=== PATIENT | female | born 1990 | race Caucasian/White ===

== ENCOUNTER 2018-11-23 02:52 | Inpatient (IN) ==
[2018-11-23 04:23] LABS: Hematocrit (blood only) 39.4 % (37-47); Hemoglobin 13.6 g/dL (12.0-16.0); Mean Corpuscular Volume 86.6 fL (80-100); Mean Platelet Volume 13.3 fL (7.4-10.4); Platelet Count 165 K/uL (130-400); RDW Coefficient of Variation 15.3 % (11.5-14.5); RDW Standard Deviation 48.5 fL (36.4-46.3); Red Blood Count 4.55 M/uL (4.2-5.4); White Blood Count 11.53 K/uL (4.8-10.8)
[2018-11-23 04:30] LABS: Mean Corpuscular Hgb Conc 34.5 g/dL (32-36)
[2018-11-23] MEDS ORDERED: OXYTOCIN 30 UNITS/500 ML BAG IV PRN ×2 (05:44→15:30)
--- NOTE | 2018-11-23 05:53 | History & Physical Report ---
Date of Service November 23, 2018 Assessment & Plan (1) Supervision of normal first : - tracing Cat I - ROM for 6 hours - no active ctx's - will start pitocin per induction protocol - anticipate History of Present Illness Chief Complaint: ROM Primary Care Provider: [facility] PCP The patient is a 28-year-old 1 para 0 with an EDC of 25 November who was admitted at 39+ weeks gestational age with spontaneous rupture membranes. Patient states that the membranes ruptured at 2330 hrs. on 22 November. She describes the fluid as clear, with no real contractions. The patient has had a benign course. Her blood type is O+ antibody negative rubella immune, hepatitis B negative, the normal 1 hour Glucola x2, negative beta strep culture, patient declined genetic screening, patient declined quad screen. Allergies Allergy/AdvReac Type Severity Reaction Status Date / Time No Known Allergies Allergy Verified 11/22/18 09:57 Home Medications Home Medications Medication Instructions Recorded Confirmed Type calcium carbonate 500 mg PO DAILY 11/08/18 11/23/18 History 1 tab PO DAILY 11/08/18 11/23/18 History vitamin,calcium,pvyttlzv-rwct-povlv acid tablet Patient History Social History Preferred Language: Nepalese Communication Ability: Effective Plastic Manager Required: No Beliefs That Will Affect Care: None marital status: Current Living Situation: Spouse Other Information That Helps Us Care for You: No Feels Safe at Home: Yes Safety Concerns: Feels Safe At This Time Smoking Status: Never smoker Hx Alcohol Use: No Hx Substance Use: No Physical Exam Constitutional: WD/WN, vitals as above Respiratory: Auscultation: lungs clear to auscultation bilaterally Cardiovascular: RRR, no murmur, no edema Extremities: no calf tenderness Gastrointestinal (Abdomen): Gravid, vertex, (+)FHT's, EFW 8 lbs Genitourinary: Cervix: 3/80/-1 Results & Data Vital Signs (Past 12 Hours) Vital Signs Temp Pulse Resp BP 11/23/18 05:30 97.7 F 18 11/23/18 03:48 107 H 144/89 H 11/23/18 03:45 92 H 143/90 H 11/23/18 03:34 101 H 145/95 H 11/23/18 03:20 97.7 F 18
[2018-11-23] MEDS: LACTATED RINGER'S 1,000 ML IV PRN ×2 (06:00→09:46)
[2018-11-23] MEDS ORDERED: BUPIVACAINE 0.25% 30 ML VIAL ONE (09:21)
[2018-11-23] MEDS ORDERED: ePHEDrine sulfate 50 MG/ML AMP ONE (09:21)
[2018-11-23] MEDS ORDERED: fentaNYL 2MCG/ML ROPIV 1.25MG/ML 100 ML BAG EPI ONE (09:22)
[2018-11-23] MEDS ORDERED: fentaNYL citrate 100 MCG/2 ML VIAL ONE (09:22)
[2018-11-23] MEDS ORDERED: ePHEDrine sulfate 50 MG/ML AMP IV PRN (09:28)
[2018-11-23] MEDS ORDERED: DiphenhydrAMINE HCL 50 MG/ML VIAL IV PRN (09:28)
[2018-11-23] MEDS ORDERED: NALBUPHINE HCL INJ 10 MG/ML AMP IV PRN (09:28)
[2018-11-23] MEDS ORDERED: NALOXONE HCL 0.4 MG/1 ML VIAL/CARP IV PRN (09:28)
[2018-11-23] MEDS ORDERED: NALOXONE HCL 1 MG in SODIUM CHLORIDE 0.9% 1000ML 1,000 ML IV PRN (09:28)
[2018-11-23] MEDS ORDERED: fentaNYL 2MCG/ML ROPIV 1.25MG/ML 100 ML BAG EPI PRN (09:28)
[2018-11-23] MEDS ORDERED: ONDANSETRON INJ 2 MG/ML 2 ML VIAL IV PRN (09:28)
--- NOTE | 2018-11-23 09:30 | Anesthesiology Consultation ---
Date of Service November 23, 2018 Assessment & Plan (1) Encounter for pre-operative examination: Chart Review Chart Review: Patient NOT seen in Pre Admission Testing and Acceptable Risk for Labor Epidural Consults Requested none History Height/Weight Height: 5 ft 7 in Weight: 105.233 kg Allergies Allergy/AdvReac Type Severity Reaction Status Date / Time No Known Allergies Allergy Verified 11/22/18 09:57 Medications Home Medications Medication Instructions Recorded Confirmed Last Taken calcium carbonate 500 mg PO DAILY 11/08/18 11/23/18 11/22/18 08:00 1 tab PO DAILY 11/08/18 11/23/18 11/22/18 08:00 vitamin,calcium,yeebmpcm-qzbt-wbwsk acid tablet Active Medications Generic Name Dose Route Start Last Admin Trade Name Freq PRN Reason Stop Dose Admin Lactated Ringer's 1,000 mls @ 125 mls/hr 11/23/18 03:59 11/23/18 09:46 Lr IV 11/25/18 03:58 999 mls/hr .Q8H PRN Administration L&D Protocol Protocol Oxytocin 30 units in 500 mls @ 11 mls/hr 11/23/18 05:44 11/23/18 09:50 Pitocin IV 11/25/18 05:43 0.78 units/hr .Q24H PRN 13 mls/hr Labor Induction/Augmentation Titration Protocol 0.66 UNITS/HR Past Medical History Medical History LGSIL on Pap smear of cervix (Acute) History of varicella Hx of migraines Exercise / Class Metabolic Activity II 4-5 Yardwork/Stairs/Walk up hill Past Family History Family History Grandmother (Maternal) Kidney disease Father Thyroid disease Past Surgical History Surgical History S/P LASIK surgery S/P wisdom tooth extraction Past Anesthesia History No Hx of Anesthesia Complications and No Family Hx of Anesthesia Complications History of PONV No Hx of PONV and No Hx of Motion Sickness Social History Smoking Status: Never smoker Hx Alcohol Use: No Hx Substance Use: No Physical Exam Vital Signs Last Vital Signs Temp 36.6 C 11/23/18 09:30 Pulse 89 08/22/19 09:51 Resp 18 11/23/18 07:21 BP 134/80 11/23/18 08:41 Pulse Ox 94 11/23/18 09:51 Testing Laboratory Results 11/23/18 04:07
[2018-11-23] MEDS ORDERED: BISACODYL 10 MG SUPP PR PRN (15:30)
[2018-11-23] MEDS ORDERED: DIPHTHERIA/TETANUS/PERTUSSIS 0.5 ML SYR/VIAL IM ONE (15:30)
[2018-11-23] MEDS ORDERED: SUPERCREAM 0.870% 15 GM JAR EXT PRN (15:30)
[2018-11-23] MEDS ORDERED: HYDROCORTISONE ACETATE 25 MG SUPP PR PRN (15:30)
[2018-11-23] MEDS ORDERED: IBUPROFEN 600 MG TAB PO PRN (15:30)
[2018-11-23] MEDS ORDERED: BENZOCAINE 20% AER SPR 82.5 GM CAN EXT PRN (15:30)
[2018-11-23] MEDS ORDERED: OXYCODONE/ACETAMINOPHEN 5mg/325mg TAB PO PRN (15:30)
[2018-11-23] MEDS ORDERED: ACETAMINOPHEN 325 MG TAB PO PRN (15:30)
--- NOTE | 2018-11-23 17:12 | Anesthesia Procedure Note ---
Date of Service November 23, 2018 Anesthesia Post Epidural Note Vital Signs Vital Signs: Temp Pulse Resp BP Pulse Ox 36.5 C 91 H 18 130/85 96 11/23/18 16:55 11/23/18 17:03 11/23/18 16:55 11/23/18 17:03 11/23/18 15:16 Pain Intensity Head: Pain Intensity: 1 Notes Mental Status: alert / awake / arousable Patient Amnestic to Procedure: No Nausea / Vomiting: adequately controlled Pain: adequately controlled Airway Patency, RR, SpO2: stable & adequate BP & HR: stable & adequate Hydration State: stable & adequate Neuraxial Anesthesia: was administered and sensory block is resolving Anesthetic Complications: no major complications apparent and Pt Satisfied with anesthetic care Epidural: Removed without complications and With tip intact
[2018-11-23] MEDS ORDERED: DOCUSATE SODIUM 100 MG CAP ONE (19:49)
[2018-11-23] MEDS: DOCUSATE SODIUM 100 MG CAP PO SCH (20:13)
[2018-11-24 06:48] LABS: Hematocrit (blood only) 37.3 % (37-47); Hemoglobin 12.4 g/dL (12.0-16.0); Mean Corpuscular Hgb Conc 33.2 g/dL (32-36); Mean Corpuscular Volume 87.1 fL (80-100); Mean Platelet Volume 12.3 fL (7.4-10.4); Platelet Count 158 K/uL (130-400); RDW Coefficient of Variation 15.7 % (11.5-14.5); Red Blood Count 4.28 M/uL (4.2-5.4); White Blood Count 13.54 K/uL (4.8-10.8)
--- NOTE | 2018-11-24 06:56 | Obstetrical Progress Note ---
Date of Service <Farideh Neri MD - Last Filed: 11/24/18 06:57> November 24, 2018 Assessment & Plan <Farideh Neri MD - Last Filed: 11/24/18 06:57> (1) Status post vaginal delivery: Celeste is a 28 yo on PPD 1 after at 39w - GBS -, Blood Type O+, Rubella immune -Vitals reviewed and WNL -patient is doing clinically well continue routine post care - After discharge will have [address] Alicea. Subjective <Farideh Neri MD - Last Filed: 11/24/18 06:57> Ambulation: ambulating normally Voiding: no voiding problems Passing Gas:: Yes Diet Tolerance:: regular diet Lochia:: Moderate Feeding Type:: breast feeding Current Pain Level(1-10): 2 examined at bedside Constitutional: no fever, no chills and no sweats Respiratory: no cough and no dyspnea Cardiovascular: no chest pain Gastrointestinal: no abdominal pain, no nausea and no vomiting Genitourinary (female): no urinary frequency Neurologic: no headache(s) Physical Exam <Farideh Neri MD - Last Filed: 11/24/18 06:57> Constitutional WD/WN, vitals as above Neck normal visual inspection Respiratory normal respiratory effort, lungs clear to auscultation Cardiovascular RRR, no murmur, no edema Heart Sounds: normal S1 and normal S2 Extremities: no calf tenderness and no edema Gastrointestinal (Abdomen) Inspection/Auscultation: normal bowel sounds; abdomen not distended Percussion/Palpation: abdomen soft Genitourinary Uterus: firm, fundus palpable 2 cm below umbilicus Results & Data <Farideh Neri MD - Last Filed: 11/24/18 06:57> Vital Signs (Past 12 Hours) Vital Signs Temp Pulse Resp BP Pulse Ox 11/24/18 03:50 36.5 C 95 H 16 123/82 95 11/23/18 23:05 36.5 C 96 H 17 121/77 95 11/23/18 20:00 36.5 C 89 17 130/81 95 <Mira Miles MD, FACOG - Last Filed: 11/24/18 07:58> Co-Signing Physician Notes Resident Physician Supervision Note: I interviewed and examined the patient. Discussed with Dr. Neri and agree with findings and plan as documented in the note. Any exceptions or clarifications are listed here: [None] Documented By: Mira Miles MD, FACOG
[2018-11-24] MEDS: DOCUSATE SODIUM 100 MG CAP PO SCH ×2 (08:51→22:05)
[2018-11-24] MEDS: PRENATAL VITAMIN 1 TAB PO SCH (08:51)
[2018-11-24] MEDS ORDERED: BISACODYL 5 MG TABEC PO SCH (20:00)
[2018-11-24] MEDS ORDERED: BISACODYL 5 MG TABEC PO ONE (22:07)
[2018-11-25 06:27] LABS: Hematocrit (blood only) 38.4 % (37-47); Hemoglobin 12.4 g/dL (12.0-16.0)
--- NOTE | 2018-11-25 06:46 | Obstetrical Progress Note ---
Date of Service <Farideh Neri MD - Last Filed: 11/25/18 06:46> November 25, 2018 Assessment & Plan <Farideh Neri MD - Last Filed: 11/25/18 06:46> (1) Status post vaginal delivery: Celeste is a 28 yo on PPD 2 after at 39w - GBS -, Blood Type O+, Rubella immune -Vitals reviewed and WNL -patient is doing clinically well and ready for d/c discharge instructions reviewed - After discharge will have [address] Alicea. Subjective <Farideh Neri MD - Last Filed: 11/25/18 06:46> Ambulation: ambulating normally Voiding: no voiding problems Passing Gas:: Yes Diet Tolerance:: regular diet Lochia:: Small Feeding Type:: breast feeding Current Pain Level(1-10): 1 examined at bedside Constitutional: no fever, no chills and no sweats Eyes: no worsening vision Respiratory: no cough and no dyspnea Cardiovascular: no chest pain Breast: no breast pain Gastrointestinal: no abdominal pain, no nausea and no vomiting Genitourinary (female): no dysuria and no urinary frequency Neurologic: no headache(s) Physical Exam <Farideh Neri MD - Last Filed: 11/25/18 06:46> Constitutional WD/WN, vitals as above Neck normal visual inspection Respiratory normal respiratory effort, lungs clear to auscultation Cardiovascular RRR, no murmur, no edema Heart Sounds: normal S1 and normal S2 Extremities: no calf tenderness and no edema Gastrointestinal (Abdomen) Inspection/Auscultation: normal bowel sounds; abdomen not distended Percussion/Palpation: abdomen soft Genitourinary OB Exam Abdomen: + fundal height Fundus: + firm and + relation to umbilicus (1 cm below) Results & Data <Farideh Neri MD - Last Filed: 11/25/18 06:46> Vital Signs (Past 12 Hours) Vital Signs Temp Pulse Resp BP 11/25/18 00:05 36.7 C 88 18 128/76 <Cici Duvall MD, FACOG - Last Filed: 11/25/18 07:17> Co-Signing Physician Notes Resident Physician Supervision Note: I interviewed and examined the patient. Discussed with Dr Brewer and agree with findings and plan as documented in the note. Any exceptions or clarifications a re listed here: [None] Documented By: Cici Duvall MD, FACOG
[2018-11-25] MEDS: PRENATAL VITAMIN 1 TAB PO SCH (08:17)
[2018-11-25] MEDS: DOCUSATE SODIUM 100 MG CAP PO SCH (08:18)
--- NOTE | 2018-11-27 10:04 | Delivery Summary ---
DATE OF OPERATION: 11/23/2018 DATE OF DELIVERY: 11/23/2018 The patient is a 28-year-old G1, P0 white female, EDC of 11/25/2018 who presented with ruptured membranes for approximately 6 hours. She received Pitocin augmentation as labor did not ensue on its own. She received effective epidural analgesia. She progressed to full dilation and pushed effectively over intact perineum for delivery of a viable . Mouth and nasopharynx were suctioned on the perineum. The infant was then placed on the mother's abdomen for further attention and drying. The was vigorous and moving all 4 limbs. The placenta was expressed intact with a 3-vessel cord. A first-degree perineal laceration was repaired with 3-0 chromic in the usual fashion. Estimated blood loss was 250 mL. Mother and infant were doing well after delivery. I attest to the content of the Intraoperative Record and any orders documented therein. Any exception s are noted below.
== END 2018-11-25 12:30 | disposition home or self-care (01) | DRG 807 ==
LOC: OPB 02:52 → 4S1 02:55 → 4S2 18:43

== ENCOUNTER 2020-10-02 13:20 | Inpatient (IN) ==
[2020-10-02] MEDS ORDERED: OXYTOCIN 30 UNITS/500 ML BAG IV PRN ×2 (13:40→20:32)
[2020-10-02] MEDS: LACTATED RINGER'S 1,000 ML IV PRN ×2 (13:45→14:46)
--- NOTE | 2020-10-02 13:45 | History & Physical Report ---
Date of Service October 02, 2020 Assessment & Plan (1) Active labor at term: admit, iv, labs. fhts categ 1. arom after epidural. Addendum: now comfortable with epidural, sve 6-7/80/-2 arom, ? successful, will monitor for fluid leak. fhts categ 1 History of Present Illness Chief Complaint: labor Primary Care Provider: NO PCP 30yo at 39+wks ega sent from office with active labor. Contractions regular. No rom. No vb. +FM PNC c/b obesity PNL Rh pos, RI, GBS neg OBH: x1 GYNH: nl paps no stds. Allergies Allergy/AdvReac Type Severity Reaction Status Date / Time No Known Allergies Allergy Verified 10/02/20 14:25 Home Medications Medication Instructions Recorded Confirmed Type prenat.vits,charity,ruc-touw-juxii 1 tab PO DAILY 11/08/18 10/02/20 History Patient History Medical History History of varicella Hx of migraines LGSIL on Pap smear of cervix Varicella vaccination Surgical History S/P LASIK surgery S/P wisdom tooth extraction Family History Grandmother (Maternal) Kidney disease Father Thyroid disease Denies family history of Ovarian cancer Breast cancer Colorectal cancer Social History Smoking Status: Never smoker Hx Alcohol Use: No Hx Substance Use: No Preferred Language: Romansh Communication Ability: Effective Trigonometry Tutor Required: No Beliefs That Will Affect Care: None marital status: marital status details: Dayday Coyne (30) [phone] Current Living Situation: Spouse Current Living Situation Comment: lives with spouse, daughter, dog, cat-outside current occupational status: employed current occupation: [employer] Other Information That Helps Us Care for You: No Feels Safe at Home: Yes Safety Concerns: Feels Safe At This Time Assistive Devices: None Review of Systems as per Subjective / HPI Physical Exam Constitutional: WD/WN, vitals as above Gastrointestinal (Abdomen): soft gravid nt Musculoskeletal: no edema Neurologic: grossly normal Psychiatric: A+Ox3, euthymic affect Genitourinary: Manual OB Exam: + cervical dilation (per Dr. Garay) 5 cm and + cervical effacement 90% OB Exam Monitor Tracing: + external FHT monitor used, + external uterine monitor used, + category I and + normal FHT variability Coding Level of Care Code None Diagnoses Active labor at term
[2020-10-02] MEDS ORDERED: ePHEDrine sulfate 50 MG/ML AMP ONE (13:59)
[2020-10-02] MEDS ORDERED: BUPIVACAINE 0.25% 30 ML VIAL ONE (13:59)
[2020-10-02] MEDS ORDERED: SODIUM CHLORIDE 0.9% INJ 10 ML VIAL ONE (13:59)
[2020-10-02] MEDS ORDERED: fentaNYL citrate 100 MCG/2 ML VIAL ONE (13:59)
[2020-10-02] MEDS ORDERED: fentaNYL 2MCG/ML ROPIVACAINE 1.25MG/ML 100 ML BAG EPI ONE (14:00)
[2020-10-02 14:05] LABS: Hematocrit (blood only) 38.8 % (37-47); Hemoglobin 12.7 g/dL (12.0-16.0); Mean Corpuscular Hemoglobin 28.7 pg (25-34); Mean Corpuscular Hgb Conc 32.7 g/dL (32-36); Mean Corpuscular Volume 87.8 fL (80-100); Mean Platelet Volume 12.7 fL (7.4-10.4); Platelet Count 152 K/uL (130-400); RDW Coefficient of Variation 15.6 % (11.5-14.5); RDW Standard Deviation 50.5 fL (36.4-46.3); Red Blood Count 4.42 M/uL (4.2-5.4); White Blood Count 12.38 K/uL (4.8-10.8)
[2020-10-02 14:37] LABS: Albumin Level 2.6 gm/dl (3.4-5.0); BUN Creatinine Ratio 13.6 (10-20); Blood Urea Nitrogen 8 mg/dl (7-18); Calcium 8.6 mg/dl (8.5-10.1); Carbon Dioxide 22 mmol/L (21-32); Chloride 109 mmol/L (98-107); Creatinine Clr Calc Pharmacy 187.5 ml/min; Est GFR (Non-African American) 125.1 ml/min; Glucose 79 mg/dl (70-99); Potassium 3.6 mmol/L (3.5-5.1); Sodium 139 mmol/L (136-145)
[2020-10-02 14:40] LABS: Alanine Aminotransferase 19 U/L (12-78); Albumin Globulin Ratio 0.7 (0.9-2); Alkaline Phosphatase 186 U/L (45-117); Aspartate Aminotransferase 26 U/L (15-37); Bilirubin Direct < 0.1 mg/dl (0-0.2); Bilirubin,Total 0.3 mg/dl (0.2-1); Globulin 3.7 gm/dl (2.5-4.0); Total Protein 6.3 gm/dl (6.4-8.2)
[2020-10-02] MEDS ORDERED: NALOXONE HCL 0.4 MG/1 ML VIAL/CARP IV PRN (14:49)
[2020-10-02] MEDS ORDERED: diphenhydrAMINE 50 MG/ML VIAL IV PRN (14:49)
[2020-10-02] MEDS ORDERED: fentaNYL 2MCG/ML ROPIVACAINE 1.25MG/ML 100 ML BAG EPI PRN (14:49)
[2020-10-02] MEDS ORDERED: NALOXONE HCL 1 MG in SODIUM CHLORIDE 0.9% 1000ML 1,000 ML IV PRN (14:49)
[2020-10-02] MEDS ORDERED: ONDANSETRON INJ 2 MG/ML 2 ML VIAL IV PRN (14:49)
[2020-10-02] MEDS ORDERED: ePHEDrine sulfate 50 MG/ML AMP IV PRN (14:49)
--- NOTE | 2020-10-02 14:53 | Anesthesiology Consultation ---
Date of Service October 02, 2020 Assessment & Plan Chart Review Chart Review: Patient NOT seen in Pre Admission Testing and Acceptable Risk for Labor Epidural Consults Requested none ASA ASA2 Proposed Anesthesia Anesthesia Type: Labor Epidural and CSE Risk / Benefits Reviewed With: PT / POA / Parent / Guardian, Accepts Plan and Informed Consent Obtained History Height/Weight Height: 5 ft 7 in Weight: 109.769 kg Allergies Allergy/AdvReac Type Severity Reaction Status Date / Time No Known Allergies Allergy Verified 10/02/20 14:25 Medications Home Medications Medication Instructions Recorded Confirmed Last Taken prenat.vits,charity,pxg-mgiv-gqooa 1 tab PO DAILY 11/08/18 10/02/20 10/01/20 09:00 Active Medications Generic Name Dose Route Start Last Admin Trade Name Freq PRN Reason Stop Dose Admin Lactated Ringer's 1,000 mls @ 125 mls/hr 10/02/20 13:40 10/02/20 14:46 Lr IV 10/04/20 13:39 125 mls/hr .Q8H PRN Administration L&D Protocol Protocol NPO Date Last Intake of Fluids: 10/02/20 Time Last Intake of Fluids: 12:00 Date Last Intake of Solids: 10/02/20 Time Last Intake of Solids: 04:00 Past Medical History Medical History History of varicella Hx of migraines LGSIL on Pap smear of cervix Varicella vaccination Exercise / Class Metabolic Activity II 4-5 Yardwork/Stairs/Walk up hill Past Family History Family History Grandmother (Maternal) Kidney disease Father Thyroid disease Denies family history of Ovarian cancer Breast cancer Colorectal cancer Past Surgical History Surgical History S/P LASIK surgery S/P wisdom tooth extraction Past Anesthesia History No Hx of Anesthesia Complications and No Family Hx of Anesthesia Complications History of PONV Adult History of PONV (18 and older): No Hx of PONV and No Hx of Motion Sickness Social History Smoking Status: Never smoker Hx Alcohol Use: No Hx Substance Use: No Review of Systems no chest pain or sob Physical Exam Vital Signs Last Vital Signs Temp 36.9 C 10/02/20 14:47 Pulse 98 H 10/02/20 14:50 Resp 20 10/02/20 14:47 BP 140/87 10/02/20 14:47 Pulse Ox 94 10/02/20 14:50 ENMT Mouth: no TMJ abnormality Thyromental Distance: > or= 3.5 Finger Breadths Mallampati Class: II Neck normal visual inspection Respiratory normal respiratory effort Auscultation: lungs clear to auscultation bilaterally Cardiovascular Rate/Rhythm: regular rate and regular rhythm Musculoskeletal Spine: normal cervical ROM Neurologic moves all extremities Psychiatric Orientation: alert and oriented x 3 Testing Laboratory Results 10/02/20 13:56 10/02/20 13:56
[2020-10-02] MEDS ORDERED: oxyCODONE/ACETAMINOPHEN 5mg/325mg TAB PO PRN (20:32)
[2020-10-02] MEDS ORDERED: IBUPROFEN 600 MG TAB PO PRN (20:32)
[2020-10-02] MEDS ORDERED: ACETAMINOPHEN 325 MG TAB PO PRN (20:32)
--- NOTE | 2020-10-02 20:35 | Delivery Summary ---
Vaginal Delivery Summary Date of Service October 02, 2020 Vaginal Delivery Summary and 2nd Degree LAC The patient dilated to complete and pushed to deliver a viable male infant Apgars 8 and 9 via over small 2nd degree perineal laceration. Delivered from ROP position with body cord. Shoulders and body delivered rapidly with ease. Mouth and nose bulb suctioned. Infant was vigorous and crying at . Cord clamped at 30 seconds of life and infant to maternal abdomen where the cord was then doubly clamped and cut. Placenta delivered spontaneously and intact, three-vessel cord. Hemostasis achieved with dilute pitocin and uterine massage and drainage of the bladder for approximately 300 cc under sterile conditions. Laceration repaired in usual fashion with 3-0 vicryl. Cervix and sulci intact. EBL 300 cc. Mother and baby stable recovery. [facility] Vaginal Delivery Charge Vaginal Delivery Codes: 31300 global code for the antepartum, delivery, and post- Delivery Type Details: and 2nd Degree LAC
[2020-10-02] MEDS ORDERED: OXYTOCIN 20 UNITS in LACTATED RINGER'S 1,000 ML IV SCH (20:45)
[2020-10-02] MEDS ORDERED: BENZOCAINE 20% AER SPR 82.5 GM CAN EXT PRN (20:55)
[2020-10-02] MEDS ORDERED: SUPERCREAM 0.870% 15 GM JAR EXT PRN (20:55)
[2020-10-02] MEDS ORDERED: HYDROCORTISONE ACETATE 25 MG SUPP PR PRN (20:55)
[2020-10-02] MEDS ORDERED: DIPHTHERIA/TETANUS/PERTUSSIS 0.5 ML SYR/VIAL IM ONE (20:55)
--- NOTE | 2020-10-02 21:58 | Anesthesia Procedure Note ---
Date of Service October 02, 2020 Anesthesia Post Epidural Note Vital Signs Vital Signs: Temp Pulse Resp BP Pulse Ox 36.9 C 102 H 18 130/72 95 10/02/20 21:30 10/02/20 21:45 10/02/20 21:30 10/02/20 21:45 10/02/20 20:20 Pain Intensity Abdomen: Pain Intensity: 0 Notes Mental Status: alert / awake / arousable and participated in evaluation Nausea / Vomiting: adequately controlled Pain: adequately controlled Airway Patency, RR, SpO2: stable & adequate BP & HR: stable & adequate Hydration State: stable & adequate Neuraxial Anesthesia: was administered and sensory block is resolving Anesthetic Complications: no major complications apparent and Pt Satisfied with anesthetic care Epidural: Removed without complications and With tip intact
--- NOTE | 2020-10-03 05:55 | Obstetrical Progress Note ---
Date of Service <Mary Lou MosquedaDO liz - Last Filed: 10/03/20 06:40> October 03, 2020 Assessment & Plan <Mary Lou Gamal, DO - Last Filed: 10/03/20 06:40> (1) Encounter for care and examination after delivery: 39 yo F PPD#1 following at 39+ weeks. Doing well and without complaints. Bottle feeding. Ambulating and voiding without difficulty. Continue routine care and anticipate discharge late this evening/tomorrow. <Nikkie Rodriguez MD, FACOG - Last Filed: 10/03/20 06:42> Day #:: 1 Subjective <Mary Lou MosquedaDO liz - Last Filed: 10/03/20 06:40> 30 yo female ; PPD # 1 following vaginal delivery at 39+weeks (delivered at 8:15PM 10/02); doing well this AM; minimal abdominal cramping/pain; voiding well, passing gas; tolerating meals overnight, able to ambulate some within the room. Bottle feeding without difficulties. Unsure if she wants to go home at 24 hours; will discuss with . Review of Systems Constitutional: denies fever, chills, sweats, headache Respiratory: denies SOB, difficulty breathing Cardiac: denies CP, chest palpitations, chest pressure Breast: denies breast pain : denies dysuria Physical Exam <Mary Lou MosquedaDO liz - Last Filed: 10/03/20 06:40> General: patient is alert and oriented, in NAD Cardiac: +S1/S2, no murmurs rubs or gallops Respiratory: lungs CTA b/l, anteriorly and posteriorly, no wheezes rales or rhonchi, no increased work of breathing, symmetric chest rise, no respiratory distress Abdomen: soft, NT, +bowel sounds Uterus: uterine fundus firm, palpable 2cm below the umbilicus Lower Extremities: no LE edema or swelling, no deep calf pain, Diana's sign negative b/l Results & Data ([facility]) <Mary Lou Gamla, DO - Last Filed: 10/03/20 06:40> Vital Signs (Past 12 Hours) Vital Signs Temp Pulse Pulse Resp BP BP Pulse Ox 10/03/20 04:00 36.8 C 85 18 120/79 96 10/02/20 22:45 36.8 C 102 H 20 131/84 10/02/20 22:30 98 H 129/64 10/02/20 22:15 93 H 133/65 10/02/20 22:00 101 H 124/63 10/02/20 21:45 102 H 130/72 10/02/20 21:30 36.9 C 99 H 18 127/70 10/02/20 21:15 99 H 148/83 H 10/02/20 21:00 82 18 122/65 10/02/20 20:45 87 18 117/55 L 10/02/20 20:30 103 H 18 128/62 10/02/20 20:20 89 95 10/02/20 20:19 84 138/63 10/02/20 20:15 137 H 93 10/02/20 20:14 109 H 85 L 10/02/20 20:10 99 H 97 10/02/20 20:08 113 H 82 L 10/02/20 20:05 127 H 98 10/02/20 20:04 80 137/69 10/02/20 20:00 112 H 96 10/02/20 19:55 82 95 10/02/20 19:50 91 H 95 10/02/20 19:49 81 133/70 10/02/20 19:45 85 95 10/02/20 19:40 83 94 10/02/20 19:35 82 95 10/02/20 19:34 83 144/74 H 10/02/20 19:30 94 H 18 93 10/02/20 19:25 83 95 10/02/20 19:20 81 95 10/02/20 19:19 97 H 137/77 10/02/20 19:15 85 96 10/02/20 19:10 84 95 10/02/20 19:05 36.8 C 80 18 94 10/02/20 19:04 80 135/75 10/02/20 19:00 85 18 96 10/02/20 18:55 88 96 10/02/20 18:50 79 96 10/02/20 18:49 76 130/72 10/02/20 18:45 98 H 94 10/02/20 18:40 97 H 97 10/02/20 18:35 83 136/69 96 10/02/20 18:30 77 20 95 07/01/21 18:25 89 96 10/02/20 18:20 88 95 10/02/20 18:18 75 124/68 10/02/20 18:15 83 95 10/02/20 18:10 85 94 10/02/20 18:05 97 H 95 10/02/20 18:03 82 135/71 10/02/20 18:00 79 18 95 10/02/20 17:55 92 H 97 <Nikkie Rodriguez MD, FACOG - Last Filed: 10/03/20 06:42> Co-Signing Physician Notes Resident Physician Supervision Note: I was present with Dr. Yeung during the history and exam. I discussed the case with the resident and agree with the findings and plan as documented in the note. Any exceptions or clarifications are listed here: doing well, denies complaints. holding baby, bottle feeding. eating, voiding and ambulating without issue. ff 2 down nt. ext nt calves. ppd#1 routine care. bottle, rh pos, ri. Documented By: Nikkie Rodriguez MD, FACOG Resident Activity Tracking <Mary Lou Yeung DO - Last Filed: 10/03/20 06:40> Resident Involvement: Resident Care Provided Care Provided: OB Delivery
[2020-10-03] MEDS: DOCUSATE SODIUM 100 MG CAP PO SCH ×2 (07:39→21:01)
[2020-10-03] MEDS: PRENATAL VITAMIN 1 TAB PO SCH (07:39)
--- NOTE | 2020-10-04 07:00 | Obstetrical Progress Note ---
Date of Service October 04, 2020 Assessment & Plan (1) Encounter for care and examination after delivery: D/C instructions reviewed. Subjective Ambulation: ambulating normally Voiding: no voiding problems Passing Gas:: Yes Diet Tolerance:: regular diet Lochia:: Small Feeding Type:: bottle feeding Current Pain Level(1-10): 0 Physical Exam Constitutional WD/WN, vitals as above Eyes PERRL, conjunctivae normal, anicteric sclerae ENMT external ear and nose normal, oropharynx normal Neck trachea midline, no thyromegaly Respiratory normal respiratory effort and able to speak in complete sentences; no respiratory distress, no labored breathing and does not use accessory muscles Cardiovascular Rate/Rhythm: regular rate and regular rhythm Extremities: no calf tenderness and no pedal edema Gastrointestinal (Abdomen) Inspection/Auscultation: abdomen normal to inspection Musculoskeletal no cyanosis or clubbing, extremities motor strength 5/5 Skin no rashes, warm and dry Psychiatric A+Ox3, euthymic affect Genitourinary Speculum/Bimanual Exam: uterus nontender OB Exam Abdomen: + fundal height (at umbilicus) Fundus: + firm Results & Data ([facility]) Vital Signs (Past 12 Hours) Vital Signs Temp Pulse Resp BP Pulse Ox 10/03/20 23:55 97.5 F L 92 H 16 126/87 96 10/03/20 19:40 97.9 F 99 H 18 123/77 94
[2020-10-04] MEDS: DOCUSATE SODIUM 100 MG CAP PO SCH (08:19)
[2020-10-04] MEDS: PRENATAL VITAMIN 1 TAB PO SCH (08:19)
== END 2020-10-04 13:18 | disposition home or self-care (01) | DRG 807 ==
LOC: OPB 13:20 → 4S2 13:22 → 4S1 14:05 → 4N 23:00